=== PATIENT | male | born 1970 | race Caucasian/White ===

== ENCOUNTER 2019-09-28 13:50 | Emergency (ER) | payer OTHER ==
[~2019-09-28] VITALS: Ht 175.3 cm; Wt 84.1 kg
[2019-09-28] MEDS ORDERED: IBUPROFEN 600 MG TABLET PO ONE (14:00)
[2019-09-28] MEDS ORDERED: ACETAMINOPHEN 500 MG TABLET PO ONE (14:00)
[2019-09-28] MEDS ORDERED: SODIUM CHLORIDE 0.9% 1,000 ML IV ONE (15:30)
[2019-09-28 15:43] LABS: INFLUENZA TYPE A NEGATIVE FOR TYPE A (NEGATIVE); INFLUENZA TYPE B NEGATIVE FOR TYPE B (NEGATIVE)
[2019-09-28 15:59] LABS: BASOPHILS % (AUTO) 0.4 % (0.0-2.0); EOSINOPHILS % (AUTO) 0.2 % (1.0-6.0); HEMATOCRIT 42.4 % (41-53); HEMOGLOBIN 15.1 g/dL (13.5-17.5); LYMPHOCYTES # (AUTO) 0.5 K/uL (1.0-4.8); LYMPHOCYTES % (AUTO) 4.9 % (22.0-44.0); MEAN CORPUSCULAR HEMOGLOBIN 32.3 pg (26.0-34.0); MEAN CORPUSCULAR HGB CONC 35.5 G/dL (31.0-37.0); MEAN CORPUSCULAR VOLUME 91 fL (80-100); MONOCYTES # (AUTO) 0.7 K/uL (0.1-1.0); MONOCYTES % (AUTO) 7.2 % (2.0-9.0); NEUTROPHILS # (AUTO) 8.7 K/uL (1.8-7.7); PLATELET COUNT (AUTO) 282 K/uL (150-450); RED BLOOD CELL COUNT(AUTO) 4.66 MIL/uL (4.50-5.90); RED CELL DISTRIBUTION WIDTH 12.6 % (11.5-14.5)
[2019-09-28 16:10] LABS: ANION GAP 13 mmol/L (8-16); CALCIUM, TOTAL 9.1 mg/dL (8.8-10.5); CARBON DIOXIDE 23 mmol/L (22-29); CHLORIDE 101 mmol/L (98-107); CREATININE 0.81 mg/dL (0.60-1.30); GLOMERULAR FILTR. RATE CALC > 60 mL/min (>60); GLUCOSE,RANDOM 107 mg/dL (70-110); POTASSIUM 3.6 mmol/L (3.5-5.1); SODIUM SERUM 137 mmol/L (136-145); UREA NITROGEN, BLOOD 12 mg/dL (7-18)
[2019-09-28 16:13] LABS: PROTHROMBIN TIME 10.6 SEC (9.4-11.6)
[2019-09-28 16:17] LABS: ALANINE AMINOTRANSFERASE 51 U/L (12-78); ALBUMIN 4.4 g/dL (3.4-5.0); ALKALINE PHOSPHATASE 93 U/L (46-116); ASPARTATE AMINOTRANSFERASE 28 U/L (15-37); BILIRUBIN,TOTAL 1.5 mg/dL (0.1-1.0); CREATINE KINASE, TOTAL ONLY 365 U/L (39-308); NEUTROPHILS % (AUTO) 87.3 % (40.0-70.0); TOTAL PROTEIN, SERUM 7.8 g/dL (6.4-8.2)
[2019-09-28 16:28] LABS: APPEARANCE,URINE CLEAR (CLEAR); BILIRUBIN,URINE NEGATIVE (NEGATIVE); GLUCOSE, URINE (UA) NEGATIVE (NEGATIVE); KETONES,URINE NEGATIVE (NEGATIVE); LEUKOCYTE ESTERASE ,URINE NEGATIVE (NEGATIVE); NITRATE,URINE NEGATIVE (NEGATIVE); OCCULT BLOOD,URINE NEGATIVE (NEGATIVE); PROTEIN,URINE NEGATIVE (NEGATIVE); UROBILINOGEN,URINE 0.2 mg/dL (<=1.0)
[2019-09-28 16:44] LABS: B-TYPE NATRIURETIC PEPTIDE 15 pg/mL (0-100)
[2019-09-28 18:00] VITALS: BP 134/76
== END 2019-09-28 18:05 | disposition home or self-care (01) ==
LOC: EMS 13:52
DX: J11.1 Influenza due to unidentified influenza virus with other respiratory manifestations (principal); R11.10 Vomiting, unspecified
CPT/HCPCS: 36415; 71045; 80053; 81003; 82550; 83880; 84484; 85025; 85610; 85730; 87804; 93005; 96360; 96361; 99285; J7030